=== PATIENT | female | born 1970 | race Caucasian/White ===

== ENCOUNTER → 2018-04-02 08:12 | Outpatient (CLI) | payer BC, SELFPAY ==
--- NOTE | 2018-04-02 08:14 | MM_ITS ---
MM Dig screening mamm BI w/CAD CAD Screening COMPARISON: Digital mammograms with CAD 08/15/2016 and 10/25/2014 INDICATION: There is a history of breast cancer patient maternal grandmother diagnosed in her 50s and maternal aunt diagnosed before menopause. TECHNIQUE: Standard CC and MLO images were obtained. R2 CAD reviewed. FINDINGS: Moderate scattered fibroglandular densities are seen throughout both breasts and the findings are bilateral and symmetrical. There is no new or suspicious lesion in either breast and there are no suspicious microcalcifications. There are stable small nodes in both axilla. There is a stable low lying node left axilla. IMPRESSION: ] Fibrofatty parenchyma no suspicious lesion seen BI-RADS Category: 1 Negative RECOMMENDED FOLLOW-UP: 1YR - 1 YEAR FOLLOW-UP (A letter has been sent to the patient regarding results of the study.)
== END ==
PROVIDERS: PCP Family Medicine; Visit Provider Nurse Practitioner Obstetrics & Gynecology
DX: Z12.31 Encounter for screening mammogram for malignant neoplasm of breast (principal)
CPT/HCPCS: 77067

== ENCOUNTER → 2018-04-15 09:40 | Outpatient (CLI) | payer BC, SELFPAY ==
--- NOTE | 2018-04-15 09:48 | XR_ITS ---
XR shoulder LT min 2V HISTORY: ITS.REASON: H/O LEFT SHOULDER PAIN ORDERING PHYSICIAN: Chad Reynolds MD PATIENT AGE: 47 years Comparison: None FINDINGS: No fracture or dislocation. No lytic or blastic change. There is normal mineralization. The joint spaces are well-preserved. No significant degenerative/arthritic changes. No erosive changes evident. IMPRESSION: Negative, no acute finding
== END ==
PROVIDERS: PCP Family Medicine; Visit Provider Family Medicine
DX: M25.512 Pain in left shoulder (principal)
CPT/HCPCS: 73030

== ENCOUNTER → 2018-09-19 07:50 | Outpatient (CLI) | payer BC, SELFPAY ==
--- NOTE | 2018-09-19 07:53 | MR_ITS ---
MR shoulder LT wo con HISTORY:Left shoulder pain with limited range of motion ITS.REASON: LEFT SHOULDER PAIN ORDERING PHYSICIAN: Chad Reynolds MD PATIENT AGE: 48 years Comparison: 04/15/2018 TECHNIQUE: Standard multiplanar multiecho sequences are performed without contrast. FINDINGS: There is mild hypertrophy of the acromioclavicular joint. No significant subacromial stenosis. There is thickening of the supraspinatus and infraspinatus tendons distally with slight increase in T2 signal consistent with tendinopathy/tendinosis. There is some increased T2 signal along the undersurface and distal aspect of the supraspinatus tendon posteriorly which could be related to partial tear. A full-thickness tear is not apparent. There is some increased T2 signal of the humeral head posteriorly suggesting subchondral cystic changes. The subscapularis and teres minor tendons are intact. No obvious labral tear. The long head of biceps tendon is in place. There is a mild amount fluid surrounding the bicipital tendon with slight increased T2 signal of the bicipital tendon at the bicipital groove. IMPRESSION: 1. Tendinopathy/tendinosis of the supraspinatus and infraspinatus tendons with possible partial tear of the supraspinatus tendon posteriorly. No evidence of full-thickness or complete tear. 2. Tenosynovitis of the long head of the biceps tendon
== END ==
PROVIDERS: PCP Family Medicine; Visit Provider Family Medicine
DX: M25.512 Pain in left shoulder (principal)
CPT/HCPCS: 73221

== ENCOUNTER → 2019-05-28 10:05 | Outpatient (CLI) | payer BC, SELFPAY ==
--- NOTE | 2019-05-28 10:12 | XR_ITS ---
PROCEDURE: XR CERVICAL SPINE 5V CLINICAL INDICATION: NECK PAIN, RADICULOPATHY Arm numbness COMPARISON: No exams were available for comparison FINDINGS: There is straightening of the cervical lordosis which could be due to patient positioning or muscle spasm. There is mild degenerative disc disease at C4-C5, C5-C6, and C6-C7 with small endplate osteophytes. No fracture or dislocation evident. There is minimal foraminal narrowing on the left at C3-C4. No cervical rib. No lytic or blastic change. IMPRESSION: Straightening of lordosis with mild degenerative disc disease with minimal left-sided foraminal narrowing at C3-C4. Dictated by: Jun Aldrich MD 05/28/2019 12:49 Electronically signed by Jun Aldrich MD in [place] 05/28/2019 12:49
== END ==
PROVIDERS: PCP Family Medicine; Visit Provider Family Medicine
DX: M54.2 Cervicalgia (principal); M54.12 Radiculopathy, cervical region
CPT/HCPCS: 72050

== ENCOUNTER → 2019-06-09 14:13 | Outpatient (CLI) | payer BC, SELFPAY ==
--- NOTE | 2019-06-09 14:17 | MR_ITS ---
PROCEDURE: MR CERVICAL SPINE WO CON CLINICAL INDICATION: CERVICAL SPINAL STENOSIS, NUMBNESS OF UPPER EXTREMITY Neck pain with bilateral arm pain numbness and tingling with limited range of motion with worsening symptoms COMPARISON: No exams were available for comparison TECHNIQUE: Standard multiplanar multiecho sequences are performed without contrast. 3-D MIP and myelographic images are also rendered and reviewed FINDINGS: There is slight reversal of the cervical lordosis. The cranial cervical junction has an unremarkable appearance. There is mild multilevel degenerative disc disease from C2-C7 with slight decrease in the disc spaces and bulging of the disc. Additional findings at the disc spaces include: C2-C3: Unremarkable. C3-C4: Mild bulging disc very slightly eccentric to the left with mild left-sided foraminal narrowing. There is narrowing of the canal at this level at 10 mm with minimal impingement upon the anterior aspect of the cord and mild contour cord deformity. C4-C5: Mild bulging disc with small central disc protrusion very slightly eccentric toward the right causing mild impingement and contour deformity along the anterior aspect of the cord. There is narrowing of the canal at 9 at 10 mm. C5-C6: Minimal bulging disc slightly eccentric to the left with narrowing of the canal at 10 mm with only minimal anterior impingement and contour deformity. C6-C7: Mild bulging disc with small central disc protrusion with narrowing of the canal without impingement or contour deformity of the cord. IMPRESSION: 1. Multilevel cervical spondylosis with bulging and protruding discs with degenerative disc disease and canal stenosis as detailed above. Please see above for detailed description at each level. 2. C3-C4: Mild bulging disc very slightly eccentric to the left with mild left-sided foraminal narrowing. There is narrowing of the canal at this level at 10 mm with minimal impingement upon the anterior aspect of the cord and mild contour cord deformity. 3. C4-C5: Mild bulging disc with small central disc protrusion very slightly eccentric toward the right causing mild impingement and contour deformity along the anterior aspect of the cord. There is narrowing of the canal at 9 at 10 mm. 4. C5-C6: Minimal bulging disc slightly eccentric to the left with narrowing of the canal at 10 mm with only minimal anterior impingement and contour deformity. 5. C6-C7: Mild bulging disc with small central disc protrusion with narrowing of the canal without impingement or contour deformity of the cord. Dictated by: Jun Aldrich MD 06/10/2019 16:03 Electronically signed by Jun Aldrich MD in [place] 06/10/2019 16:03
== END ==
PROVIDERS: PCP Family Medicine; Visit Provider Family Medicine
DX: M48.02 Spinal stenosis, cervical region (principal); M50.30 Other cervical disc degeneration, unspecified cervical region; R20.0 Anesthesia of skin
CPT/HCPCS: 72141; 76376

== ENCOUNTER → 2019-07-21 16:52 | Outpatient (CLI) | payer BC, SELFPAY ==
--- NOTE | 2019-07-21 16:54 | MM_ITS ---
PROCEDURE: MM DIG SCREENING MAMM BI W/CAD DIGITAL BREAST TOMOSYNTHESIS INCLUDED Patient Age:49Y CLINICAL INDICATION: screening xmg No hormones no new complaints Family history maternal grandmother and maternal aunt with breast cancer COMPARISON: [facility] DIGITAL MAMM-SCREEN BILATERAL from 07/06/2011 [facility] DIG MAMM-SCREEN FRANCISCO from 09/10/2013 DMSB DIG MAMM-SCREEN FRANCISCO from 10/25/2014 could to the [id number] DIG MAMM-DX UNI ADD VIEWS-RT from 11/04/2014 [facility] DIG MAMM-SCREEN FRANCISCO W/CAD from 08/15/2016 [facility] MM Dig screening mamm BI w/CAD from 04/02/2018 TECHNIQUE: Standard CC and MLO images were obtained. R2 CAD reviewed. Digital breast tomosynthesis included bilateral FINDINGS: Lower density breast with minimal scattered fibroglandular elements bilaterally most notable towards upper-outer quadrant both breast. With no dominant or suspicious mass, and no suspicious calcifications Right breast. No new areas of concern stable right breast Left breast no significant new findings Mild asymmetric fibroglandular elements towards superior breast bilaterally, appear similar to multiple previous studies Bilateral follow-up 1 year recommended IMPRESSION: Stable bilateralMammogram. No significant new findings. Bilateral follow-up 1 year recommended BI-RAD Category: 2 Benign Finding(s) FOLLOW-UP: 1YR 1 Year Follow-up (A letter has been sent to the patient regarding results of the study.) Dictated by: Jaswant Pride MD 07/23/2019 21:16 Electronically signed by Jaswant Pride MD in [place] 07/23/2019 21:16
== END ==
PROVIDERS: PCP Family Medicine; Visit Provider Nurse Practitioner Obstetrics & Gynecology
DX: Z12.31 Encounter for screening mammogram for malignant neoplasm of breast (principal)
CPT/HCPCS: 77063; 77067

== ENCOUNTER 2019-10-19 11:06 | Emergency (ER) | payer BC, SELFPAY ==
[2019-10-19 11:08] VITALS: BP 171/88; PULSE 94; RESP 18; TEMP 36.6; O2SAT 98; BMI 35.9
--- NOTE | 2019-10-19 11:21 | XR_ITS ---
PROCEDURE: XR CHEST 2V Patient Age:49Y CLINICAL HISTORY: cough past two days Patient has had hysterectomy COMPARISON: CXR1 CHEST-PORTABLE from 03/18/2014 CXR CHEST(2 VIEWS-NOT PORTABLE) from 01/11/2017 FINDINGS: Today's PA and lateral chest is compared to 01/11/2017. Slightly dial polisher technique which slightly accentuates markings but nothing definitely acute. There may be some minor atelectasis at the right infrahilar region towards right base noting the right hemidiaphragm is slightly elevated although this could merely be a flexion less optimal inspiration today. The heart toy and mediastinal structures appears satisfactory. Chest wall in T-spine appear stable and satisfactory. Normal pulmonary vascularity. Palmar Milana palmar in IMPRESSION: Nothing definitely acute No consolidation. Noted definitive focal pneumonia. Would only note lung markings are perhaps very slightly more pronounced towards right infrahilar region,. Suspect this reflects less optimal inspiration, along with perhaps mild atelectasis right lung base, yielding associated slight elevation right hemidiaphragm.. Dictated by: Jaswant Pride MD 10/19/2019 11:59 Electronically signed by Jaswant Pride MD in [place] 10/19/2019 11:59
[2019-10-19 11:42] LABS: Strep Scrn Group A (Rapid) Negative (Negative)
--- NOTE | 2019-10-19 13:06 | HMH.EDSOB ---
ED Disposition Clinical Impression: Sinusitis, Viral URI with cough Disposition: Home, Self-Care Condition on Discharge: Good Instructions: Sinus Headache, DI for Sinusitis Additional Instructions: Please stay isolated until you are asymptomatic that means no cough no headache no sore throat or general malaise or any symptoms of any kind. If her COVID test comes back negative still follow previous instructions. If the cover test comes back not negative or positive please quarantine for 14 days Prescriptions: Albuterol Sulfate [Proair Hfa] 2 puff IH Q4HP PRN 30 Days #1 hfa.[email or web address] PRN Reason: Shortness Of Breath [facility] Azithromycin 250 mg PO DAILY 5 Days #6 tab Transmission Status: Pending to [facility] methylPREDNISolone [Medrol 4mg tab] 4 mg PO DIRECTED #21 tab Transmission Status: [facility] Referrals: Long Borden MD [Primary Care Provider] - - Critical Care Critical Care Time: No Attestation: On 10/19/19, the high probability of a clinically significant, sudden or life threatening deterioration of the following system(s) required my full and direct attention, intervention and personal management. The time I documented below is in addition to time spent performing reported procedures but includes the following listed in this critical care notation. Medical Decision Making - Medical Records Medical records reviewed: Yes: I reviewed the patient's medical records. - Rick Inquiry Pt receiving controlled substance: No Vital Signs: 10/19/19 11:08 Temperature 97.8 F Temperature Source Oral Pulse Rate [Radial] 94 H Respiratory Rate 18 Blood Pressure [Right Arm] 171/88 H Blood Pressure Mean [Right Arm] 115 Blood Pressure Source [Right Arm] Automatic Cuff Blood Pressure Position [Right Arm] Sitting 02 Sat by Pulse Oximetry 98 Oxygen Delivery Method Room Air - Lab Data Lab results reviewed: Yes: I reviewed the patient's lab results. Lab Results 10/19/19 11:15: Group A Strep Rapid Negative Orders (Tests/Meds): ORDERS Category Date Time Status SARS-CoV-2, RONLAD ([place]) Stat Lab 10/19/19 12:52 Ordered Strep Screen Confirmation Stat Micro 10/19/19 11:15 Received Medical Decision Narrative: Given the fact the patient's strep test came back negative given her symptoms with the widespread outbreak of COVID-19 will go ahead and test her. Resp/SOB HPI - General Chief Complaint: Shortness of Breath/Dyspnea Stated Complaint: sore throat,cough,SOA,headache Time Seen by Provider: 10/19/19 13:06 Mode of Arrival: Ambulatory Limitations: No Limitations Description of Symptoms (Recalled from ER Triage Doc. by RN): Sore throat, cough (worse at night), headache, SOA, chest fullness since Saturday. - History of Present Illness 41-year-old female presents the ED complaining of acute shortness of breath cough and sore throat and headache. She states the symptoms started a couple of days ago and is progressively gotten worse as the days gone on. She does states she does have allergies and sometimes she develops that the cough when she has nasal congestion or sinus infection. She also states that she has not been running a fever she denies any objective or subjective fever. Patient does work at [employer] where there has been an outbreak of COVID-19. - Related Data Home Medications Medication Instructions Recorded Confirmed omeprazole 40 mg capsule,delayed 40 mg PO 30 Days cap 06/10/18 06/10/19 release Previous Rx's Medication Instructions Recorded fluticasone propionate 50 1 spray INTRANASAL QDAY #9.9 ml 04/13/19 mcg/actuation nasal spray,suspension amoxicillin 500 mg capsule 500 mg PO Q12H 10 Days #20 cap 06/10/19 prednisone 20 mg tablet 20 mg PO BID 5 Days #10 tab 06/10/19 Albuterol Sulfate [Proair Hfa] 2 puff IH Q4HP PRN 30 Days #1 10/19/19 hfa.aer.ad Azithromycin 250 mg PO DAILY 5 Days #6 t
--- NOTE | 2019-10-19 13:12 | PC.NURSE ---
NOTIFIED LAB OF COVID TESTING NEEDED.
[2019-10-19 13:29] VITALS: BP 171/88; PULSE 94; RESP 18; TEMP 36.6; O2SAT 98
[2019-10-20 10:57] LABS: Covid-19 Nasal PCR Sendout UK NOT DETECTED
== END 2019-10-19 13:30 | disposition home or self-care (01) ==
PROVIDERS: Emergency Provider Family Medicine; PCP Family Medicine
DX: J01.90 Acute sinusitis, unspecified (principal); K21.9 Gastro-esophageal reflux disease without esophagitis; Z90.79 Acquired absence of other genital organ(s); Z90.49 Acquired absence of other specified parts of digestive tract
CPT/HCPCS: 71046; 87430; 99283; U0003

== ENCOUNTER → 2020-08-11 17:16 | Outpatient (CLI) | payer BC, SELFPAY | PROVIDERS: PCP Family Medicine; Visit Provider Nurse Practitioner Family | DX: Z20.822 Contact with and (suspected) exposure to COVID-19 (principal) | CPT/HCPCS: U0003 ==

== ENCOUNTER → 2020-12-22 16:39 | Outpatient (CLI) | payer BC, SELFPAY ==
[2020-12-22 17:36] LABS: Erythrocyte Sedimentation Rate 18 mm/hr (0-20)
[2020-12-22 17:40] LABS: Uric Acid 3.8 mg/dl (2.5-6.2)
[2020-12-22 17:47] LABS: C-Reactive Protein 1.2 mg/L (0-4)
== END ==
PROVIDERS: Visit Provider Nurse Practitioner Family
DX: M25.50 Pain in unspecified joint (principal)
CPT/HCPCS: 36415; 84550; 85651; 86038; 86140; 86431

== ENCOUNTER 2020-12-25 14:42 | Emergency (ER) | payer BC, SELFPAY ==
[2020-12-25 15:07] VITALS: BP 116/56; PULSE 99; RESP 18; TEMP 36.9; O2SAT 100; BMI 29.2
--- NOTE | 2020-12-25 15:10 | XR_ITS ---
PROCEDURE INFORMATION: Exam: XR Right Ankle Exam date and time: 12/25/2020 3:10 PM Age: 50 years old Clinical indication: Pain; Right; Prior surgery; Surgery date: 6+ months; Surgery type: Ankle surgery six years ago. TECHNIQUE: Imaging protocol: XR Right ankle. Views: 3 or more views. COMPARISON: CR ANKR3 ANKLE-RT-3 VIEWS 04/20/2014 9:21 AM FINDINGS: Bones/joints: Plate and screws in the distal fibula.. There is no evidence of acute fracture.There is no evidence of malalignment or dislocation. Soft tissues: Normal. IMPRESSION: 1. Plate and screws in the distal fibula.. 2. There is no evidence of acute fracture.There is no evidence of malalignment or dislocation.
--- NOTE | 2020-12-25 15:10 | XR_ITS ---
PROCEDURE INFORMATION: Exam: XR Right Foot Exam date and time: 12/25/2020 3:10 PM Age: 50 years old Clinical indication: Patient HX: Right foot pain since Saturday, no known injury. TECHNIQUE: Imaging protocol: XR Right foot. Views: 3 or more views. COMPARISON: CR ANKR3 ANKLE-RT-3 VIEWS 04/20/2014 9:21 AM FINDINGS: Bones/joints: Plate and screws in the distal fibula. There is no evidence of acute fracture.There is no evidence of malalignment or dislocation. Soft tissues: Normal. IMPRESSION: 1. Plate and screws in the distal fibula. 2. There is no evidence of acute fracture.There is no evidence of malalignment or dislocation.
--- NOTE | 2020-12-25 15:49 | HMH.EDUTC ---
[facility] Disposition Clinical Impression: Right foot pain, Calcaneal spur, right Disposition: Home, Self-Care Condition on Discharge: Good Instructions: DI for Foot Pain Additional Instructions: Rest the extremity, Elevate the extremity as tolerated while you are resting. Take ibuprofen for pain. Follow up with Dr. Ellis (podiatry). I put in a referral but you need to call her office and schedule an appointment. Follow up with your regular doctor. GO TO THE ER FOR ANY WORSENING SYMPTOMS Prescriptions: Diclofenac Sodium [Diclofenac Sod 100gm Topical Gel] 1 applicatio TP QIDP PRN #1 tube PRN Reason: Moderate Pain Transmission Status: Received by [facility] Referrals: Long Borden MD [Primary Care Provider] - Marielos Ellis DPM [Staff Physician] - Time of Disposition: 16:39 Medical Decision Making - Medical Records Medical records reviewed: No: I reviewed the patient's medical records. - Rick Inquiry Pt receiving controlled substance: No Vital Signs: 12/25/20 15:07 12/25/20 16:46 Temperature 98.5 F 98 F Temperature Source Oral Pulse Rate 95 H Pulse Rate [Left] 99 H Respiratory Rate 18 16 Blood Pressure 117/63 Blood Pressure [Right Arm] 116/56 L Blood Pressure Mean [Right Arm] 76 02 Sat by Pulse Oximetry 100 - Radiology Data #1 Image(s): Ankle Image Reviewed: Yes I reviewed the patient's radiology image, Yes I have reviewed radiologist's interpretation Preliminary Findings: Abnormal, No Fracture Seen PROCEDURE INFORMATION: Exam: XR Right Ankle Exam date and time: 12/25/2020 3:10 PM Age: 50 years old Clinical indication: Pain; Right; Prior surgery; Surgery date: 6+ months; Surgery type: Ankle surgery six years ago. TECHNIQUE: Imaging protocol: XR Right ankle. Views: 3 or more views. COMPARISON: CR ANKR3 ANKLE-RT-3 VIEWS 04/20/2014 9:21 AM FINDINGS: Bones/joints: Plate and screws in the distal fibula.. There is no evidence of acute fracture.There is no evidence of malalignment or dislocation. Soft tissues: Normal. [facility] HPI - General Stated complaint: rt foot/ ankle pain previous injury Time Seen by Provider: 12/25/20 15:51 Mode of Arrival: Ambulatory Source of Information: Patient Limitations: No Limitations Description of Symptoms (Recalled from Triage Doc. by RN): pt c/o sharp pain in her R foot and ankle. pt had plates and screws put in her ankle about four years ago and has never had a problem with it since. no injury that she is aware of. HEENT Symptoms (Recalled from RN notes): No Resp Symptoms (Recalled from RN notes): No Skin Symptoms (Recalled from RN notes): No MS Symptoms (Recalled from RN notes): Yes (R foot and ankle pain) Functional Status (Recalled from RN notes): na - History of Present Illness Provider Complaint: She states that over the past 3 days she has had worsening right foot pain. The pain is worse in the morning when she first gets up. She denies any recent injury. - Related Data Home Medications Medication Instructions Recorded Confirmed omeprazole 40 mg capsule,delayed 40 mg PO 30 Days cap 06/10/18 08/11/20 release cyclobenzaprine 5 mg tablet 5 mg PO tab 08/11/20 08/11/20 diclofenac sodium 75 mg mg PO 08/11/20 08/11/20 tablet,delayed release gabapentin 300 mg capsule 300 mg PO cap 08/11/20 08/11/20 lisinopril 10 1 tab PO tab 08/11/20 08/11/20 mg-hydrochlorothiazide 12.5 mg tablet Previous Rx's Medication Instructions Recorded Diclofenac Sodium [Diclofenac Sod 1 applicatio TP QIDP PRN #1 tube 12/25/20 100gm Topical Gel] Allergies Allergy/AdvReac Type Severity Reaction Status Date / Time No Known Allergies Allergy Verified 08/11/20 16:48 - Worker's Comp Is this a Worker's Comp case?: No [facility] History - Hepatitis A Screen Drug use history?: No High risk sexual behaviors?: No History of sexually transmitted infection?: No Currently employed?: N
[2020-12-25 16:46] VITALS: BP 117/63; PULSE 95; RESP 16; TEMP 36.6
== END 2020-12-25 16:54 | disposition home or self-care (01) ==
PROVIDERS: Emergency Provider Nurse Practitioner Family; PCP Family Medicine
DX: M77.31 Calcaneal spur, right foot (principal); M79.671 Pain in right foot; K21.9 Gastro-esophageal reflux disease without esophagitis; Z87.891 Personal history of nicotine dependence; Z79.899 Other long term (current) drug therapy
CPT/HCPCS: 73610; 73630; 99202; G0463

== ENCOUNTER → 2020-12-30 15:42 | Outpatient (CLI) | payer BC, SELFPAY ==
--- NOTE | 2020-12-30 15:43 | MM_ITS ---
PROCEDURE: MM DIG SCREENING MAMM BI W/CAD Digital Breast Tomosynthesis Included CLINICAL INDICATION: screening xmg COMPARISON: MG DMSB DIG MAMM-SCREEN FRANCISCO W/CAD from 08/15/2016 MG [facility] MM Dig screening mamm BI w/CAD from 04/02/2018 MG MM DIG SCREENING MAMM BI W/CAD from 07/21/2019 TECHNIQUE: Standard CC and MLO images and 3D Tomosynthesis was obtained. R2 CAD reviewed. FINDINGS: Average fibroglandular tissue.No suspicious appearing mass, malignant-appearing microcalcification, architectural distortion, or skin thickening. No change with no evidence of malignancy IMPRESSION: Negative BI-RAD Category: 1 Negative FOLLOW-UP: 1 YR 1 Year Follow-up (A letter has been sent to the patient regarding results of the study.) Dictated by: Jun Aldrich MD 01/12/2021 15:04 uJn Aldrich MD in [place] 01/12/2021 15:04
== END ==
PROVIDERS: PCP Family Medicine; Visit Provider Nurse Practitioner Obstetrics & Gynecology
DX: Z12.31 Encounter for screening mammogram for malignant neoplasm of breast (principal)
CPT/HCPCS: 77063; 77067

== ENCOUNTER → 2021-01-03 12:56 | Outpatient (CLI) | payer BC, SELFPAY ==
--- NOTE | 2021-01-03 12:56 | US_ITS ---
PROCEDURE: US TRANSVAGINAL CLINICAL INDICATION: Left lower quadrant pain, ovarian cyst COMPARISON: No exams were available for comparison FINDINGS: Prior hysterectomy. Vaginal cuff has an unremarkable appearance. LEFT OVARY: [id number] with a volume of 12.1ml. There are 4 cysts of the left ovary measuring 14, 12, 12 and 17 mm RIGHT OVARY: [id number] with a volume of 93.9ml. There are 2 cyst of right ovary the largest 4.7 cm and 3.4 cm. These are simple cyst. No cul-de-sac fluid. IMPRESSION: Prior hysterectomy. Bilateral ovarian cysts measuring up 4.7 cm. Suggest 6 month follow-up to confirm resolution or stability. Dictated by: Jun Aldrich MD 01/03/2021 15:48 Jun Aldrich MD in [place] 01/03/2021 15:48
== END ==
PROVIDERS: PCP Family Medicine; Visit Provider Nurse Practitioner Obstetrics & Gynecology
DX: R10.32 Left lower quadrant pain (principal); N83.209 Unspecified ovarian cyst, unspecified side
CPT/HCPCS: 76830

== ENCOUNTER 2021-02-23 12:00 | Emergency (ER) | payer BC, SELFPAY ==
[2021-02-23 12:10] VITALS: BP 131/80; PULSE 92; RESP 21; TEMP 36.8; O2SAT 100; BMI 30.2
[2021-02-23 12:35] LABS: UTC Strep Screen (Rapid) Negative (Negative)
--- NOTE | 2021-02-23 12:45 | HMH.EDUTC ---
[facility] [place] Disposition Clinical Impression: Exposure to COVID-19 virus Acute bronchitis Qualifiers: Bronchitis organism: unspecified organism Qualified Code(s): J20.9 - Acute bronchitis, unspecified Disposition: Home, Self-Care Condition on Discharge: Good Instructions: Preventing the Spread of Coronavirus Discharge Instructions, DI for COVID-19 (Suspected or Confirmed ), DI for Acute Bronchitis Additional Instructions: Drink plenty of fluids. Take tylenol or ibuprofen for pain or fever. Take the medications as directed. Follow up with your regular doctor. GO TO THE ER FOR ANY WORSENING SYMPTOMS Quarantine until you know the results of your covid-19 test. If it is positive, the health department should call you and give you further instructions about your length of Quarantine and other things. Notify your school or workplace of your results and follow their instructions regarding return to work/school. The cough medication (promethazine dm) will make you drowsy, so don't drive or operate heavy machinery after taking it. Prescriptions: Promethazine/Dextromethorphan [Promethazine-Dm Syrup] 5 ml PO Q6HP PRN #240 ml PRN Reason: Cough [facility]: [facility] methylPREDNISolone [Medrol] 4 mg PO DIRECTED 6 Days #21 packet Transmission Status: Pending to [facility] Azithromycin [Z-Haris 250mg Tab*] 250 mg PO UD DOSE PK #6 tab Transmission Status: [facility] Referrals: Chad Reynolds MD [Primary Care Provider] - Forms: Work/School Release Time of Disposition: 12:53 Medical Decision Making - Medical Records Medical records reviewed: No: I reviewed the patient's medical records. - Rick Inquiry Pt receiving controlled substance: No Vital Signs: 02/23/21 12:10 Temperature 98.2 F Temperature Source Oral Pulse Rate [Right Brachial] 92 H Respiratory Rate 21 Blood Pressure [Right Arm] 131/80 Blood Pressure Mean [Right Arm] 97 Blood Pressure Source [Right Arm] Automatic Cuff Blood Pressure Position [Right Arm] Sitting 02 Sat by Pulse Oximetry 100 Oxygen Delivery Method Room Air - Lab Data Lab results reviewed: Yes: I reviewed the patient's lab results. Lab Results 02/23/21 12:15: Strep Scn Rapid Clinic Negative Orders (Tests/Meds): ORDERS Category Date Time Status Covid-19 Nasal PCR ([facility]) Routine Lab 02/23/21 12:15 Ordered Strep Screen Confirmation Routine Micro 02/23/21 12:15 Received [facility] HPI - General Stated complaint: covid symptoms Time Seen by Provider: 02/23/21 12:45 Mode of Arrival: Ambulatory Source of Information: Patient Limitations: No Limitations Description of Symptoms (Recalled from Triage Doc. by RN): PATIENT C/O SORE THROAT, HEADACHE, BACK PAIN, COUGH AND FATIGUE SINCE SATURDAY HEENT Symptoms (Recalled from RN notes): Yes Resp Symptoms (Recalled from RN notes): Yes Skin Symptoms (Recalled from RN notes): No MS Symptoms (Recalled from RN notes): Yes Functional Status (Recalled from RN notes): WNL - History of Present Illness Provider Complaint: She states that she started having a mild cough on Saturday (4 days ago). Since then she has got more congested and she has started to run a fever, have sore throat, body aches. She has not been vaccinated against covid-19. - Related Data Home Medications Medication Instructions Recorded Confirmed omeprazole 40 mg capsule,delayed 40 mg PO DAILY 30 Days cap 06/10/18 02/23/21 release lisinopril 10 1 tab PO DAILY tab 08/11/20 02/23/21 mg-hydrochlorothiazide 12.5 mg tablet Previous Rx's Medication Instructions Recorded Azithromycin [Z-Haris 250mg Tab*] 250 mg PO UD DOSE PK #6 tab 02/23/21 Promethazine/Dextromethorphan 5 ml PO Q6HP PRN #240 ml 02/23/21 [Promethazine-Dm Syrup] methylPREDNISolone [Medrol] 4 mg PO DIRECTED 6 Days #21 02/23/21 packet Allergies Allergy/AdvReac Type Severity Reaction Status Date / Time No Know
[2021-02-23 12:56] VITALS: BP 131/80; PULSE 92; RESP 21; TEMP 36.8; O2SAT 100
== END 2021-02-23 12:59 | disposition home or self-care (01) ==
PROVIDERS: Emergency Provider Nurse Practitioner Family; PCP Family Medicine
DX: J20.9 Acute bronchitis, unspecified (principal); Z20.822 Contact with and (suspected) exposure to COVID-19
CPT/HCPCS: 87880; 99203; C9803; G0463; U0003; U0005

== ENCOUNTER → 2021-04-16 12:04 | Outpatient (CLI) | payer BC, SELFPAY | PROVIDERS: PCP Family Medicine; Visit Provider Nurse Practitioner Family | DX: Z20.822 Contact with and (suspected) exposure to COVID-19 (principal) | CPT/HCPCS: C9803; U0003; U0005 ==

== ENCOUNTER → 2021-06-19 16:19 | Outpatient (CLI) | payer BC, SELFPAY | PROVIDERS: Visit Provider Nurse Practitioner | DX: U07.1 COVID-19 (principal) | CPT/HCPCS: C9803; U0003; U0005 ==

== ENCOUNTER 2021-11-08 12:46 | Emergency (ER) | payer BC, SELFPAY ==
[2021-11-08 12:50] VITALS: BP 125/77; PULSE 91; RESP 19; TEMP 36.9; O2SAT 98; BMI 22.8
[2021-11-08 13:20] LABS: Strep Scrn Group A (Rapid) Negative (Negative)
--- NOTE | 2021-11-08 13:29 | HMH.EDUTC ---
[facility] [place] Clinical Impression: Sinusitis Qualifiers: Sinusitis location: unspecified location Chronicity: unspecified Qualified Code(s): J32.9 - Chronic sinusitis, unspecified Disposition: Home, Self-Care Condition on Discharge: Good Instructions: Sinusitis, DI for Sinusitis, Amoxicillin and Clavulanic Acid Additional Instructions: *Monitor Temp, Over the counter Motrin or Tylenol as directed/as needed Tylenol every 4 hours and Motrin every 6 hours (as long as your family doctor has told you that you can take it) for fever or pain. and straight to ER if unable to lower temp less than 101.0 after medication given *Warm salt water gargles may help to soothe the throat *Throat Lozenges *Warm fluids like tea with honey may help to soothe the throat *Sleep elevated *Humidifier/Vaporizer Your throat swab was sent for culture. Those results are typically sent to your primary care. Be sure to follow up in 2-3 days with your family doctor/primary care physician if no improvement so they can review those result and treat if necessary. If you don?t have a primary care doctor, I recommend you get one but in the mean time, you will have to return to a walk in clinic Follow up IMMEDIATELY for new or worsening symptoms or no Noticeable improvement over the next 48-72 hours. 911 for difficulty breathing or swallowing You were tested for today for COVID19 your test result should be back in the next 24-48 hours, you may check your results on the [facility] My Health Portal Make sure to take your Vitamins Vit. C Vit D and Zinc if you can take them Prescriptions: Benzonatate [Benzonatate 100mg cap] 100 mg PO Q8HP PRN #30 cap PRN Reason: Cough Transmission Status: Pending to [facility] Amoxicillin/Potassium Clav [Amox-Clav 875-125 mg Tablet] 1 tab PO BID #14 tab Transmission Status: Pending to [facility] predniSONE [Prednisone 20mg Tab] 20 mg PO BID 5 Days #10 tab Transmission Status: Pending to [facility] Referrals: Chad Reynolds MD [Primary Care Provider] - As needed Time of Disposition: 13:38 Medical Decision Making - Rick Inquiry Pt receiving controlled substance: No Rick was queried for this patient: No Vital Signs: 11/08/21 12:50 Temperature 98.4 F Temperature Source Oral Pulse Rate [Right Brachial] 91 H Respiratory Rate 19 Blood Pressure [Right Arm] 125/77 Blood Pressure Mean [Right Arm] 93 Blood Pressure Source [Right Arm] Automatic Cuff Blood Pressure Position [Right Arm] Sitting 02 Sat by Pulse Oximetry 98 Oxygen Delivery Method Room Air - Lab Data Lab results reviewed: Yes: I reviewed the patient's lab results. Lab Results 11/08/21 13:02: Group A Strep Rapid Negative Orders (Tests/Meds): ORDERS Category Date Time Status Strep Screen Confirmation Stat Micro 11/08/21 13:02 Received [facility] [place]PI - General Stated complaint: cough, congestion, MENDEZ Time Seen by Provider: 11/08/21 13:29 Mode of Arrival: Ambulatory Source of Information: Patient Limitations: No Limitations Description of Symptoms (Recalled from Triage Doc. by RN): PATIENT C/O COUGH, RUNNY NOSE, HEADACHE, BODY ACHES, SORE THROAT, EAR ACHE AND DIZZINESS HEENT Symptoms (Recalled from RN notes): Yes Resp Symptoms (Recalled from RN notes): Yes Skin Symptoms (Recalled from RN notes): No MS Symptoms (Recalled from RN notes): No Functional Status (Recalled from RN notes): WNL - History of Present Illness Provider Complaint: Patient states that she hasnt been feeling well for several days States that she has been having sinus pain and pressure, sore throat, pain and pressure in ears and headache States that today she was feeling worse and wasnt able to go to work so she came in to get checked - Related Data Home Medications Medication Instructions Recorded Confirmed omeprazole 40 mg capsule,delayed 40 mg PO DAILY 30 Days cap 06/10/18 11/08/21 release lisinopril 10 1 tab PO GRAZYNA
[2021-11-08 13:42] VITALS: BP 125/77; PULSE 91; RESP 19; TEMP 36.9; O2SAT 98
== END 2021-11-08 13:49 | disposition home or self-care (01) ==
PROVIDERS: Emergency Provider Nurse Practitioner; PCP Family Medicine
DX: J32.9 Chronic sinusitis, unspecified (principal); K21.9 Gastro-esophageal reflux disease without esophagitis; I10 Essential (primary) hypertension; Z87.891 Personal history of nicotine dependence
CPT/HCPCS: 87430; 99212; G0463

== ENCOUNTER → 2022-02-08 15:51 | Outpatient (CLI) | payer BC, SELFPAY ==
--- NOTE | 2022-02-08 15:51 | MM_ITS ---
PROCEDURE INFORMATION: Exam: MG Bilateral Screening 3D Mammography Exam date and time: 02/08/2022 3:46 PM Age: 51 years old Clinical indication: Screening examination TECHNIQUE: Imaging protocol: Bilateral Screening tomosynthesis and 2D mammography including computer-aided detection (CAD) when performed. COMPARISON: 1. MG MM DIG SCREENING MAMM BI W/CAD 12/30/2020 3:43 PM 2. MG MM DIG SCREENING MAMM BI W/CAD 07/21/2019 4:59 PM FINDINGS: MAMMOGRAPHY: Breast composition: There are scattered areas of fibroglandular density. Mass: None. Architectural distortion: None. Calcifications: No suspicious calcifications. Asymmetric density: None. Skin thickening: None. Axillary adenopathy: None. IMPRESSION: No mammographic evidence of malignancy. Annual screening is recommended unless otherwise clinically indicated. ASSESSMENT: BI-RADS Category 1: Negative
== END ==
PROVIDERS: PCP Family Medicine; Visit Provider Nurse Practitioner Obstetrics & Gynecology
DX: Z12.31 Encounter for screening mammogram for malignant neoplasm of breast (principal)
CPT/HCPCS: 77063; 77067

== ENCOUNTER → 2023-02-26 16:03 | Outpatient (CLI) | payer BC, SELFPAY ==
--- NOTE | 2023-02-26 16:07 | MM_ITS ---
PROCEDURE INFORMATION: Exam: MG Bilateral Screening 3D Mammography Exam date and time: 02/26/2023 3:54 PM Age: 52 years old Clinical indication: Screening examination TECHNIQUE: Imaging protocol: Bilateral Screening tomosynthesis and 2D mammography including computer-aided detection (CAD) when performed. COMPARISON: 1. MG MM DIG SCREENING MAMM BI W/CAD 02/08/2022 3:46 PM 2. MG MM DIG SCREENING MAMM BI W/CAD 12/30/2020 3:43 PM FINDINGS: MAMMOGRAPHY: Breast composition: There are scattered areas of fibroglandular density. Mass: None. Architectural distortion: None. Calcifications: No suspicious calcifications. Asymmetric density: None. Skin thickening: None. Axillary adenopathy: None. IMPRESSION: No mammographic evidence of malignancy. Annual screening is recommended unless otherwise clinically indicated. ASSESSMENT: BI-RADS Category 1: Negative
== END ==
PROVIDERS: PCP Family Medicine; Visit Provider Nurse Practitioner Obstetrics & Gynecology
DX: Z12.31 Encounter for screening mammogram for malignant neoplasm of breast (principal)
CPT/HCPCS: 77063; 77067